=== PATIENT | male | born 1960 | race Two or more races ===

== ENCOUNTER 2021-04-26 23:05 | Emergency (ER) | payer MEDICARE, MEDICAID ==
[~2021-04-26] VITALS: Ht 172.7 cm; Wt 64.5 kg
[2021-04-26 23:52] VITALS: BP 133/85
[2021-04-27 00:14] LABS: COVID AG,FIA SOURCE NASOPHARYNGEAL
[2021-04-27] MEDS ORDERED: TOFA5TAB PO (00:15)
[2021-04-27] MEDS ORDERED: HYDR500C2 PO (00:15)
[2021-04-27] MEDS ORDERED: PRED5TAB PO (00:15)
[2021-04-27] MEDS ORDERED: ALBUTEROL SULFATE HFA 90 MCG/PUFF 8 GM INHALER IH ONE (01:45)
== END 2021-04-27 03:36 | disposition home or self-care (01) ==
LOC: EMS 23:08
DX: J40 Bronchitis, not specified as acute or chronic (principal); Z20.822 Contact with and (suspected) exposure to COVID-19
CPT/HCPCS: 71045; 87426; 94640; 99284; U0003; J3535